=== PATIENT | male | born 1955 | race Caucasian/White ===

== ENCOUNTER 2019-05-02 06:07 | Inpatient (IN) ==
[2019-05-02] MEDS ORDERED: Albuterol 2.5 MG/3 ML NEBULIZER IH PRN (06:38)
[2019-05-02] MEDS ORDERED: cefOXitin 2,000 MG in Water for inj. (sterile) 20 ML IVP ONE (06:38)
[2019-05-02] MEDS ORDERED: Ringers Solution, Lactated 1,000 ML IVC SCH ×2 (06:45→07:00)
[2019-05-02] MEDS ORDERED: *HR* OxyCODONE Immed Rel 5 MG TABLET PO PRN (06:48)
[2019-05-02] MEDS ORDERED: Ketorolac 15 MG/ML VIAL IVP ONE (06:48)
[2019-05-02] MEDS ORDERED: *HR* FentaNYL (PF) 100 MCG/2 ML VIAL IVP PRN (06:48)
[2019-05-02] MEDS ORDERED: Ondansetron 4 MG/2 ML VIAL IVP ONE (06:48)
[2019-05-02] MEDS ORDERED: Acetaminophen IV 1,000 MG/100 ML INFUS..BTL IVPB ONE (06:48)
[2019-05-02] MEDS ORDERED: *HR* Propofol 200 MG/20 ML VIAL IVP ONE (07:12)
[2019-05-02] MEDS ORDERED: *HR* Rocuronium Bromide 50 MG/5 ML VIAL ONE ×2 (07:13→10:10)
[2019-05-02] MEDS ORDERED: Dexamethasone 4 MG/ML VIAL ONE (07:13)
[2019-05-02] MEDS ORDERED: Ondansetron 4 MG/2 ML VIAL ONE (07:13)
[2019-05-02] MEDS ORDERED: Lidocaine -MPF 2% 2 ML VIAL ONE (07:13)
[2019-05-02] MEDS ORDERED: Lidocaine HCL 4 ML Topical Solution (Laryng-O-Jet Kit Sterile Pak) TP ONE (07:13)
[2019-05-02] MEDS ORDERED: *HR* Midazolam HCl 2 MG/2 ML VIAL ONE (07:17)
[2019-05-02] MEDS ORDERED: *HR* FentaNYL (PF) 100 MCG/2 ML VIAL ONE ×2 (07:17→09:27)
[2019-05-02] MEDS ORDERED: Albumin Human 5% 25.0 GM/500 ML VIAL ONE (08:44)
[2019-05-02] MEDS ORDERED: EPHEDrine 50 MG/ML VIAL ONE (08:50)
[2019-05-02] MEDS ORDERED: *HR* Vasopressin 20 UNIT/ML VIAL ONE (08:57)
[2019-05-02] MEDS ORDERED: *HR* Phenylephrine 10 MG/ML VIAL ONE (08:57)
[2019-05-02] MEDS ORDERED: *HR* HYDROMORPHONE 2 MG/ML VIAL ONE ×2 (11:07→13:32)
[2019-05-02] MEDS ORDERED: Neostigmine Methylsulfate 3 MG/3 ML SYRINGE ONE (11:26)
[2019-05-02] MEDS ORDERED: Naloxone 0.4 MG/ML INJ IVP PRN (13:33)
[2019-05-02] MEDS: Ketorolac 15 MG/ML VIAL IVP SCH ×2 (18:38→23:38)
[2019-05-02] MEDS: *HR* Heparin 5,000 UNIT/ML VIAL SQ SCH (18:39)
[2019-05-02] MEDS: 0.9 % Sodium Chloride 1,000 ML IVC SCH (20:44)
[2019-05-02] MEDS ORDERED: D5% in Water 1,000 ML IVC PRN (20:57)
[2019-05-02] MEDS ORDERED: Dextrose Gel 15 GM/37.5 ML TUBE PO PRN ×2 (20:57)
[2019-05-02] MEDS ORDERED: *HR* Dextrose 50 % in Water (Syg) 50 ML SYRINGE IVP PRN (20:57)
[2019-05-02] MEDS: Insulin LISPRO 300 UNITS/3 ML VIAL SQ SCH (23:38)
[2019-05-03] MEDS: Ketorolac 15 MG/ML VIAL IVP SCH ×3 (04:58→17:36)
[2019-05-03] MEDS: *HR* Heparin 5,000 UNIT/ML VIAL SQ SCH ×2 (05:05→17:36)
[2019-05-03 05:33] LABS: Basophils % 0.1 %; Eosinophils % 0.2 %; Hematocrit 33.8 % (37.5-50.1); Immature Granulocytes % 0.5 % (0-4); Lymphocytes # 0.3 K/mcL (0.6-4.6); Lymphocytes % 2.6 %; Mean Corpuscular HGB Conc 34.6 g/dL (31.6-35.5); Mean Corpuscular Hemoglobin 29.7 pg (28.0-33.3); Mean Corpuscular Volume 85.8 fL (83.0-100.0); Mean Platelet Volume 10.1 fL (9.4-12.4); Monocytes % 8.6 %; Platelet Count 195 K/mcL (140-400); Red Blood Count 3.94 M/mcL (4.19-5.50); Red Cell Distribution Width 13.7 % (11.5-14.5)
[2019-05-03 05:34] LABS: Hemoglobin 11.7 g/dL (12.9-16.9); Neutrophils # 10.7 K/mcL (1.6-8.9); White Blood Count 12.1 K/mcL (4.3-11.1)
[2019-05-03 05:49] LABS: BUN/Creatinine Ratio 14 (6-26); Blood Urea Nitrogen 11 mg/dL (8-23); Carbon Dioxide 25 mEq/L (23-29); Chloride 101 mEq/L (98-107); Glucose 157 mg/dL (70-105); Osmolality,Calculated 281 (280-300); Potassium 3.7 mEq/L (3.5-5.1); Sodium 134 mEq/L (136-145); eGFR For African Americans > 60 (> 60); eGFR For Non-African Americans > 60 (> 60)
[2019-05-03] MEDS: Insulin LISPRO 300 UNITS/3 ML VIAL SQ SCH ×3 (06:57→17:38)
[2019-05-03] MEDS: 0.9 % Sodium Chloride 1,000 ML IVC SCH ×2 (09:25→20:29)
[2019-05-04] MEDS: Ketorolac 15 MG/ML VIAL IVP SCH ×5 (00:07→23:53)
[2019-05-04] MEDS: Insulin LISPRO 300 UNITS/3 ML VIAL SQ SCH ×5 (00:25→23:51)
[2019-05-04] MEDS: 0.9 % Sodium Chloride 1,000 ML IVC SCH (01:26)
[2019-05-04] MEDS: *HR* Heparin 5,000 UNIT/ML VIAL SQ SCH ×2 (06:06→17:57)
[2019-05-05] MEDS: Ketorolac 15 MG/ML VIAL IVP SCH (03:37)
[2019-05-05] MEDS: *HR* Heparin 5,000 UNIT/ML VIAL SQ SCH ×2 (05:34→18:18)
[2019-05-05] MEDS ORDERED: Mag Hydrox/Al Hydrox/Simeth 30 ML UDC PO PRN (11:29)
[2019-05-05] MEDS ORDERED: Ibuprofen 800 MG TABLET PO PRN (11:32)
[2019-05-05 11:48] LABS: Bilirubin,Urine Small (Negative); Blood,Urine Small (Negative); Clarity,Urine Clear (Clear); Color,Urine Yellow (Yellow); Glucose,Urine (UA) >=1000 mg/dL (Normal); Ketones,Urine 80 mg/dL (Negative); Leukocyte Esterase,Urine Negative (Negative); Nitrite,Urine Negative (Negative); Protein,Urine 30 mg/dL (Neg-Trace); Specific Gravity,Urine > 1.030 (1.010-1.025); Urobilinogen,Urine Normal (Normal)
[2019-05-05 11:51] LABS: Bacteria,Urine None Seen per hpf (None-Few); Hyaline Casts,Urine None Seen per lpf (None-Few); Squamous Epithelial Cell,Urine Many per lpf (None-Few)
[2019-05-05] MEDS ORDERED: D5% in Water 1,000 ML IVC PRN (12:27)
[2019-05-05] MEDS ORDERED: Dextrose Gel 15 GM/37.5 ML TUBE PO PRN ×2 (12:27)
[2019-05-05] MEDS ORDERED: *HR* Dextrose 50 % in Water (Syg) 50 ML SYRINGE IVP PRN (12:27)
[2019-05-05] MEDS: *HR* OxyCODONE Immed Rel 5 MG TABLET PO PRN ×2 (15:13→22:08)
[2019-05-05] MEDS: Ondansetron ODT 4 MG TAB.RAPDIS SL SCH ×3 (15:13→22:08)
[2019-05-05] MEDS: *HR* Metformin 500 MG TABLET PO SCH (17:01)
[2019-05-05] MEDS: Insulin LISPRO 300 UNITS/3 ML VIAL SQ SCH ×2 (18:19→19:32)
[2019-05-05] MEDS ORDERED: Insulin LISPRO 300 UNITS/3 ML VIAL SQ SCH (21:00)
[2019-05-06] MEDS: *HR* Heparin 5,000 UNIT/ML VIAL SQ SCH (06:35)
[2019-05-06] MEDS: Ondansetron ODT 4 MG TAB.RAPDIS SL SCH ×2 (06:36→12:33)
[2019-05-06 06:37] LABS: Basophils % 0.3 %; Eosinophils # 0.3 K/mcL (0.0-0.6); Eosinophils % 2.8 %; Hematocrit 30.9 % (37.5-50.1); Hemoglobin 10.9 g/dL (12.9-16.9); Immature Granulocytes % 0.7 % (0-4); Immature Platelets 2.1 % (1.1-6.1); Lymphocytes # 0.4 K/mcL (0.6-4.6); Lymphocytes % 4.4 %; Mean Corpuscular HGB Conc 35.3 g/dL (31.6-35.5); Mean Corpuscular Hemoglobin 29.8 pg (28.0-33.3); Mean Corpuscular Volume 84.4 fL (83.0-100.0); Mean Platelet Volume 9.3 fL (9.4-12.4); Monocytes # 0.8 K/mcL (0.0-1.3); Monocytes % 8.7 %; Neutrophils # 7.9 K/mcL (1.6-8.9); Platelet Count 269 K/mcL (140-400); Red Blood Count 3.66 M/mcL (4.19-5.50); Red Cell Distribution Width 13.2 % (11.5-14.5); Segmented Neutrophils % 83.1 %; White Blood Count 9.6 K/mcL (4.3-11.1)
[2019-05-06 06:44] VITALS: BP 146/78
[2019-05-06 07:04] LABS: BUN/Creatinine Ratio 17 (6-26); Blood Urea Nitrogen 11 mg/dL (8-23); Calcium 8.4 mg/dL (8.6-10.3); Carbon Dioxide 26 mEq/L (23-29); Chloride 99 mEq/L (98-107); Glucose 143 mg/dL (70-105); Osmolality,Calculated 274 (280-300); Potassium 3.3 mEq/L (3.5-5.1); Sodium 131 mEq/L (136-145); eGFR For African Americans > 60 (> 60); eGFR For Non-African Americans > 60 (> 60)
[2019-05-06] MEDS: *HR* Metformin 500 MG TABLET PO SCH (08:58)
[2019-05-06] MEDS: Insulin LISPRO 300 UNITS/3 ML VIAL SQ SCH (08:59)
[2019-05-06] MEDS ORDERED: Lisinopril 20 MG TABLET PO SCH (09:00)
[2019-05-06] MEDS ORDERED: Potassium Chloride Elixir 20 MEQ/15 ML UDC PO ONE (10:03)
[2019-05-06] MEDS ORDERED: Furosemide 20 MG/2 ML VIAL IVP ONE (10:04)
== END 2019-05-06 14:21 | disposition home health service (06) | DRG 231 ==
LOC: SAMDAY 06:07 → 3ANU 08:19
PROVIDERS: ADMIT Surgery; ATTEND Surgery

== ENCOUNTER 2019-10-08 11:46 | Observation (INO) ==
[~2019-10-08 11:46] MED LIST: Famotidine 20 MG/2 ML VIAL IVP ONE; Ringers Solution, Lactated 1,000 ML IVC SCH
[2019-10-08] MEDS ORDERED: Bacitracin 50,000 UNIT, Polymyxin B Sulfate 500,000 UNIT, Sodium Chloride IRRigation 1,... IR ONE (12:00)
[2019-10-08] MEDS ORDERED: CeFAZolin Syr 2,000MG/20 ML 2,000 MG/20 ML SYRINGE IVPB ONE (12:02)
[2019-10-08] MEDS ORDERED: *HR* FentaNYL (PF) 100 MCG/2 ML VIAL ONE (12:19)
[2019-10-08] MEDS ORDERED: *HR* HYDROMORPHONE 2 MG/ML VIAL ONE (12:19)
[2019-10-08] MEDS ORDERED: Dexamethasone 4 MG/ML VIAL ONE (12:19)
[2019-10-08] MEDS ORDERED: *HR* Propofol 200 MG/20 ML VIAL IVP ONE (12:19)
[2019-10-08] MEDS ORDERED: Lidocaine -MPF 2% 2 ML VIAL ONE (12:19)
[2019-10-08] MEDS ORDERED: Ondansetron 4 MG/2 ML VIAL ONE (12:19)
[2019-10-08] MEDS ORDERED: *HR* Succinylcholine 200 MG/10 ML VIAL IVP ONE (12:19)
[2019-10-08] MEDS ORDERED: *HR* Rocuronium Bromide 50 MG/5 ML VIAL ONE (12:19)
[2019-10-08] MEDS ORDERED: *HR* FentaNYL (PF) 100 MCG/2 ML VIAL IVP PRN (12:46)
[2019-10-08] MEDS ORDERED: Pregabalin 75 MG CAPSULE PO ONE (12:46)
[2019-10-08] MEDS ORDERED: Ondansetron 4 MG/2 ML VIAL IVP ONE (12:48)
[2019-10-08] MEDS ORDERED: Lidocaine -MPF 4% 5 ML AMPUL ONE (14:22)
[2019-10-08] MEDS: *HR* HYDROmorphone PF 0.5 MG/0.5 ML SYRINGE IVP PRN ×4 (15:28→15:50)
[2019-10-08] MEDS ORDERED: Ondansetron 4 MG/2 ML VIAL IVP PRN (17:05)
[2019-10-08] MEDS ORDERED: Naloxone 0.4 MG/ML INJ IVP PRN (17:05)
[2019-10-08] MEDS ORDERED: Acetaminophen 325 MG TABLET PO PRN (17:05)
[2019-10-08] MEDS ORDERED: *HR* HYDROcodone/Acet 5/325 mg TABLET PO PRN (17:05)
[2019-10-08] MEDS: *HR* OxyCODONE Immed Rel 5 MG TABLET PO PRN (17:52)
[2019-10-08] MEDS: *HR* Metformin 500 MG TABLET PO SCH (20:39)
[2019-10-09] MEDS: CeFAZolin 2 GM/120 ML BAG IVPB SCH ×2 (01:13→08:43)
[2019-10-09] MEDS: Ringers Solution, Lactated 1,000 ML IVC SCH ×2 (01:13→02:56)
[2019-10-09] MEDS: *HR* Metformin 500 MG TABLET PO SCH ×2 (08:42→16:57)
[2019-10-09] MEDS: lisinopriL 20 MG TABLET PO SCH (08:42)
[2019-10-09] MEDS: *HR* OxyCODONE Immed Rel 5 MG TABLET PO PRN ×2 (14:20→21:49)
[2019-10-10] MEDS: *HR* OxyCODONE Immed Rel 5 MG TABLET PO PRN (07:47)
[2019-10-10] MEDS: *HR* Metformin 500 MG TABLET PO SCH (07:47)
[2019-10-10] MEDS: lisinopriL 20 MG TABLET PO SCH (07:48)
[2019-10-10 07:57] VITALS: BP 172/99
== END 2019-10-10 11:35 | disposition home health service (06) ==
LOC: SAMDAY 11:46 → 3NENU 11:46
PROVIDERS: ADMIT Orthopaedic Surgery Orthopaedic Surgery of the Spine; ATTEND Orthopaedic Surgery Orthopaedic Surgery of the Spine